=== PATIENT | male | born 1965 | race Caucasian/White ===

== ENCOUNTER 2017-11-17 05:54 | Day surgery (SDC) | payer OTHER ==
[2017-11-17] MEDS ORDERED: LACTATED RINGERS 1,000 ML ONE (06:45)
[2017-11-17] MEDS ORDERED: LACTATED RINGERS 1,000 ML BAG IV ONE (07:00)
[2017-11-17] MEDS ORDERED: MIDAZOLAM INJ 2 MG/2 ML VIAL ONE (07:09)
[2017-11-17] MEDS ORDERED: fentaNYL CITRATE INJ 50 MCG/ML AMP ONE (07:09)
[2017-11-17 08:55] VITALS: BP 137/86; TEMP 98.6; O2SAT 98
--- NOTE | 2017-11-17 09:01 | OP ---
DATE OF PROCEDURE: 11/17/17 PREOPERATIVE DIAGNOSIS: 1. Colon cancer screen. POSTOPERATIVE DIAGNOSIS: 1. Normal colon. PROCEDURE: 1. Colonoscopy. SURGEON: Lanre Estrada MD. ANESTHESIA: MAC by Braeden Mcfadden CRNA. ESTIMATED BLOOD LOSS: None. COMPLICATIONS: None apparent. TECHNIQUE: After informed consent was obtained from the patient, the patient was taken to the Endoscopy Suite and put in the left lateral decubitus position. After adequate IV sedation was obtained, a digital rectal exam was performed which revealed a smooth, 1+, anodular prostate. The colonoscope was then passed with good visualization all the way through the colon. The bowel prep was excellent. The cecum was identified by the presence of ileocecal valve and appendiceal orifice. The scope was then advanced into the ileocecal valve and terminal ileum had a normal appearance. The scope was then withdrawn slowly over the next 0 minutes and a good look at the entire colonic mucosa was obtained. There were no abnormalities found. The scope was removed. The patient tolerated the procedure well. The patient was transported to the outpatient area in good condition. He will followup with me on a p.r.n. basis. I have recommended a high fiber diet. He will need another colonoscopy in 10 years. #[id number] [facility]
[2017-11-17] MEDS ORDERED: PROPOFOL 200 MG/20 ML VIAL IV ONE (10:00)
[2017-11-17] MEDS ORDERED: LIDOCAINE 1% 10 ML VIAL INJ ONE (10:00)
== END 2017-11-17 08:35 | disposition home or self-care (01) ==
LOC: AMB 05:54
PROVIDERS: ATTEND Family Medicine
DX: Z12.11 Encounter for screening for malignant neoplasm of colon (principal); E66.9 Obesity, unspecified
CPT/HCPCS: 00812; 45378; J2250; J3010; J3490; J7120